=== PATIENT | female | born 1955 | race Caucasian/White ===

== ENCOUNTER → 2017-09-16 08:38 | Outpatient (CLI) | payer OTHER ==
[~2017-09-16 08:38] MED LIST: CARDURA4 MG PO; CARDURA8 MG PO; LIPITOR20 MG PO; PLAVIX75 MG PO; PROPAFENONE HC225 MG PO; TOPROL XL50 MG PO; ZESTRIL40 MG PO
[2017-10-15 08:07] VITALS: BMI 44.3
== END | disposition home or self-care (01) ==
LOC: D.RT 08:38
DX: Z02.71 Encounter for disability determination (principal)

== ENCOUNTER → 2017-09-16 08:45 | Outpatient (CLI) | payer BC ==
--- NOTE | ~2017-09-16 | EC ---
PATIENT:ARMANDO CACERES DATE OF SERVICE: 09/16/17 SEX: F MEDICAL RECORD: [id number] DATE OF : 59 LOCATION:D.US AGE OF PATIENT: 62 ADMISSION DATE: 09/16/17 REFERRING PHYSICIAN: INTERPRETING PHYSICIAN: NOY OLMEDO MD ECHOCARDIOGRAM REPORT ECHO CHARGES 4 ECHO COMPLETE Date: 09/16 CLINICAL DIAGNOSIS: ABNORMAL EKG/HTN/SVT/CP/SOB/ CHF/PALPITATIONS ECHOCARDIOGRAPHIC MEASUREMENTS (adult normal given) AC root (d.<3.7cm) 2.4 cm LV Septum d (<1.2 cm> 1.5 cm Valve Excursion 1.7 cm LV Septum (systole) 2.2 cm Left Atria (s.<4.0cm> 4.4 cm LVPW d(<1.2cm) 1.4 cm RV (d.<2.3cm) 2.7 cm LVPW (sytole) 2.5 cm LV diastole(<5.6CM) 6.0 cm MV E-F(>70mm/sec) cm LV systole 2.5 cm LVOT Diameter 1.8 cm MV exc.(>10mm) cm Est.ejection fraction (50-75%) % DOPPLER: LVIT cm/sec A 104 cm/sec E 142 cm/sec LA cm/sec RVSP 57.3 mmHg LVOT 172 cm/sec AOP1/2T m/s Asc. Ao 203 cm/sec RVOT 122 cm/sec RA cm/sec PA 126 cm/sec AV Gradient Peak 17.0 mmHg AV Mean 8.3 mmHg AV Area 2.7 cm MV Gradient Peak 17.0 mmHg MV Mean 5.8 mmHg MV Area cm COMMENTS: Tooth Inspector: Stanford MCGHEEOE Regulatory Law Specialist: 4 Dr. Olmedo TAPE# PACS Pericardial Effusion N DATE OF SERVICE: PROCEDURE: Transthoracic echocardiogram. FINDINGS: 1. The left ventricle has moderate concentric left ventricular hypertrophy with inflow characteristics consistent with a grade II diastolic dysfunction. The left ventricular end-diastolic dimension showed mild dilatation. The overall ejection fraction is 65% to 70%. 2. The left atrium is moderately dilated. ECHOCARDIOGRAM REPORT [id number] ARMANDO CACERES 3. The mitral valve shows [id number] mitral regurgitation. 4. The aortic valve is normal. 5. The tricuspid valve has trace to mild tricuspid regurgitation. The RVSP is 40 to 45 mmHg. CONCLUSIONS: The patient has evidence of hypertensive heart disease, moderate left ventricular hypertrophy, diastolic dysfunction and elevations in pulmonary systolic pressures. TRANSINT:[id number] Voice Confirmation ID: [id number] DOCUMENT ID: [id number] NOY OLMEDO MD at 1127 CC: [id number] DICTATION DATE: 09/17/17 0756 PIANO SOUNDING BOARD MATCHER: 09/17/17 0836 [facility] CLI 09/16/17 [address] [place] [address]
[2017-10-15 08:07] VITALS: BMI 44.3
== END | disposition home or self-care (01) ==
LOC: D.US 08:45
DX: R94.31 Abnormal electrocardiogram [ECG] [EKG] (principal); I10 Essential (primary) hypertension; I47.1 Supraventricular tachycardia; R07.9 Chest pain, unspecified; R06.00 Dyspnea, unspecified; R00.2 Palpitations; I50.9 Heart failure, unspecified

== ENCOUNTER 2017-10-15 07:16 | Outpatient (CLI) | payer MEDICAID ==
[~2017-10-15] VITALS: Ht 160 cm; Wt 113.6 kg
--- NOTE | ~2017-10-15 | HEMODYNAMI ---
PATIENT:ARMANDO CACERES MEDICAL RECORD: [id number] : 59 LOCATION:DYAO ADMISSION DATE: 10/15/17 Generatedon:10/15/20179:44 Patient name: ARMANDO CACERES Patient #: [id number] SSN: : 1955 Date of study: 10/15/2017 Page: Of Hemodynamic Procedure Report Patient Data Patient Demographics Procedure consent was obtained First Name: ARMANDO Gender: Female Last Name: MORRIS : 1955 Patient #: [id number] Age: 62 year(s) Race: Unknown Additional ID: [id number] Contact details Address: [address] [place] [address] State: [place] City: [place] Zip code: [address] Past Medical History Allergies: No known allergies Admission Admission Data Admission Date: 10/15/2017 Admission Time: 7:16 Admit Source: Other Height (in.): 63 BSA: 2.13 (m2) Height (cm.): 160.02 BMI: 44.29 (kg/m2) Weight (lbs.): 250 Weight (kg.): 113.4 Lab Results Lab Result Date: 10/15/2017 Lab Result Time: 0:00 Biochemistry Name Units Result Min Max BUN mg/dl 17 --(---*)-- 7 18 Creatinine mg/dl 1 --(--*-)-- 0.6 1.3 CBC Name Units Result Min Max Hemoglobin g/dl 11.4 *-(----)-- 13.5 17.5 Procedure Procedure Types Cath Procedure Diagnostic Procedure Right Heart RHC and LHC w/Coronaries Right Heart Pharmacology Study FFR/IVUS FFR Initial Procedure Description Procedure Date Procedure Date: 10/15/2017 Procedure Start Time: 8:53 Procedure End Time: 9:43 Procedure Staff Name Function Praneeth Rowe MD Performing Physician Denilson Beverly RT Monitor Cornelius Hsu RN Nurse Nick Godinez RT Scrub Procedure Data Cath Procedure Fluoroscopy Diagnostic fluoroscopy Total fluoroscopy Time: 4.6 time: 4.6 min min Diagnostic fluoroscopy Total fluoroscopy dose: 829 dose: 829 mGy mGy Contrast Material Contrast Material Type Amount (ml) Isovue 300 72 Entry Location Entry Primary Successful Side Size Upsize Upsize Entry Closure Succes sful Closure Location (Fr) 1 (Fr) 2 (Fr) Remarks Device Remarks Femoral Right 4 Fr 5 Fr 6 Fr Exoseal artery Short Femoral Right 4 Fr 7 Fr vein Short Diagnostic catheters Device Type Used For End Catheter Placement SWAN 7Fr Thermodilution Pressure cather (131F7P) Measurement MULTIPACK JL 4.0 5Fr Left Coronary catheter Angiography MULTIPACK 3DRC 5Fr Right Coronary catheter Angiography MULTIPACK Pigtail 5 Fr LV Angiography catheter Procedure Complications No complications Procedure Medications Medication Administration Route Dosage 0.9% NaCl I.V. 100 ml/hr Oxygen etCO2 Nasal cannula 2 l/min Heparin Flush Bag added to field 2 bags (1000units/500ml NS) Lidocaine 2% added to field 20 Versed I.V. 1 mg Fentanyl I.V. 25 mcg Versed I.V. 1 mg Heparin Bolus I.V. 2500 units Adenosine IV 1mg/ml I.V. 140 mcg/kg/min Adenosine IV 1mg/ml wasted 140 mcg/kg/min Hemodynamics Rest BSA: 2.13 (m2) HGB: 11.4 (g/dl) O2 Consumption: Estimated: 196.74 (ml/min) O2 Co nsumption indexed: Estimated:92.37 (ml/min/m) Heart Rate: 64 (bpm) Oxygen Saturations Time Location Saturations Hgb (g/dl) O2 Content Use (%) (ml/L) 8:59 PCW 72.7 9:01 PCW 97.3 9:02 AO 98.5 9:03 PA 68.5 9:07 RVM 65.8 9:10 RV 65.7 Pressure Samples Time Site Value (mmHg) Purpose Heart Use Rate(bpm) 8:59 PCW 33/38(28) Snapshot 67 9:00 PA 57/30(43) Snapshot 60 9:07 RV 91/6,27 Pullback 70 9:07 PA 49/43(29) Pullback 70 9:07 RV 65/11,24 Snapshot 69 9:10 RA 28/19(21) Snapshot 60 9:19 LV 190/16,37 EDP 63 9:19 LV 192/14,37 Snapshot 65 Gradients Valve Time Site 1 Site 2 Mean SEP/DFP Peak To Heart Use (mmHg) (sec/min) Peak Rate (mmHg) (bpm) Pulmonic 9:07 PA RV 5 54 42 70 49/43(29) 91/6,27 Tricuspid 9:08 RV RA 66 Aortic 9:19 LV AO 68 Thermodilution Cardiac Output Time Cardiac Output (l/min) Use 9:05 4.57 l/m 9:06 3.78 l/m Calculations Shunts (%) CO SV CO CI Left To 6.08 (ml/beat) (l/min) (l/(min*m)) Right Sol 66.53 4.23 2 Right To 6.08 143.74 Thermal 67.89 4.18 2 Left Flows (l/min) Content (ml/l) O2 Difference (ml/l) Qs 4.23 Qsi 1.99 Qe/Qp 1 O2 SA 152.71 SA-MV(AV) 46.51 O2 MV 106.2 PV-PA(VA) O2 PA 106.2 PV-MV(VV) Valve P-P Mean Valve Index Valve Source Name Gradient Area Flow (cm2) Pulmonary 42 5 0.79 0.37 78.15 Sol 42 5 0.78 0.37 77.13 Thermal Snapshots Thermal Samples Pre Cath Intra NCS Post Cath Vital Signs Time Heart Resp SPO2 etCO2 NIBP (mmHg) Rhythm Pain Sedation Rate (ipm) (%) (mmHg) Status Level (bpm) 8:44:37 62 26 98 36.8 203/91(154) NSR 0 (11) 10(A) , No pain 8:50:00 61 24 97 39 202/91(160) NSR 0 (11) 10(A) , No pain 8:55:22 61 20 96 39.1 201/84(144) NSR 0 (11) 10(A) , No pain 9:00:44 60 23 96 33.8 179/82(141) NSR 0 (11) 10(A) , No pain 9:05:57 65 21 97 20.2 180/84(136) NSR 0 (11) 10(A) , No pain 9:11:10 63 21 96 39.8 191/85(146) NSR 0 (11) 10(A) , No pain 9:16:30 60 22 97 35.3 190/81(131) NSR 0 (11) 10(A) , No pain 9:22:47 65 19 96 38.3 184/86(156) NSR 0 (11) 9(A) , No pain 9:29:16 63 25 97 37.6 183/79(142) NSR 0 (11) 9(A) , No pain 9:34:31 69 19 95 36.8 182/87(154) NSR 0 (11) 10(A) , No pain 9:41:07 63 26 94 32.3 190/87(152) NSR 0 (11) 10(A) , No pain Medications Time Medication Route Dose Verified Delivered Reason N otes Effectiveness by by 8:37:58 0.9% NaCl I.V. 100 ml/hr Cornelius Cornelius Per physician Aracelis Hsu RN RN 8:38:09 Oxygen etCO2 2 l/min Cornelius Cornelius Per physician Nasal Aracelis Hsu cannula RN RN 8:38:23 Heparin Flush added 2 bags Cornelius Cornelius used for Bag to Aracelis Hsu procedure (1000units/500ml field RN RN NS) 8:38:38 Lidocaine 2% added 20ml vial Cornelius Cornelius for local to Aracelis Hsu anesthetic field RN RN 8:52:37 Versed I.V. 1 mg Cornelius Cornelius for sedation Aracelis Hsu RN RN 8:52:47 Fentanyl I.V. 25 mcg Cornelius Cornelius for sedation Aracelis Hsu RN RN 9:25:11 Versed I.V. 1 mg Cornelius Cornelius for sedation Aracelis Hsu RN RN 9:25:31 Heparin Bolus I.V. 2,500 Cornelius Cornelius for units Preciousigan Aracelis anticoagulation RN RN 9:31:46 Adenosine IV I.V. 140 Cornelius Cornelius for 1mg/ml mcg/kg/min Aracelis Hsu vasodilation RN RN 9:33:03 Adenosine IV wasted 140 Cornelius Cornelius to sharp's 1mg/ml mcg/kg/min Aracelis Hsu RN enthone solder stripper Log Time Note 8:12:55 Admit Source: Other 8:17:54 Diagnostic Cath status Elective 8:20:37 Denilson Beverly RT(R) sent for patient. Start room use. 8:26:23 Time tracking: Regular hours (M-F 7:00 - 5:00) 8:26:27 Plan of Care:Hemodynamics will remain stable., Cardiac rhythm will remain stable., Comfort level will be maintained., Respiratory function will remain adequate., Patient/ family verbilizes understanding of procedure., Procedure tolerated without complication., Recovers from procedure without complications.. 8:26:39 H&P Date Dictated: 10/10/2017 Within 30 days and on chart., H&P Addendum completed by physician on day of procedure. (MUST COMPLETE FOR ALL OUTPATIENTS). 8:27:26 Patient received from Pre/Post Procedure Room to CCL 1 Alert and oriented. Tansferred to table in Supine position. 8:27:27 Warm blankets applied, and eduardo hugger turned on for patient comfort. 8:27:27 Correct patient and procedure confirmed by team. 8:27:29 Signed procedure consent form obtained from patient. 8:27:30 ECG and BP/O2 sat monitors applied to patient. 8:27:32 Pre-procedure instructions explained to patient. 8:27:32 Pre-op teaching completed and patient verbalized understanding. 8:27:33 Family in waiting room. 8:27:35 Patient NPO since Dinner. 8:27:42 Patient allergic to No known allergies 8:27:44 Is the patient allergic to Iodine/contrast media? No. 8:37:58 0.9% NaCl 100 ml/hr I.V. was administered by Cornelius Hsu RN; Per physician; 8:38:09 Oxygen 2 l/min etCO2 Nasal cannula was administered by Cornelius Hsu RN; Per physician; 8:38:23 Heparin Flush Bag (1000units/500ml NS) 2 bags added to field was administered by Cornelius Hsu RN; used for procedure; 8:38:38 Lidocaine 2% 20ml vial added to field was administered by Cornelius Hsu RN; for local anesthetic; 8:38:44 Vital chart was started 8:41:23 Is patient on blood thinner?Yes 8:41:25 Patient diabetic? No. 8:41:29 ----Pre-sedation anethsthesia assessment.---- 8:41:31 Previous problem with sedation/anesthesia? No ? 8:41:36 Snore? Yes 8:41:38 Sleep apnea? Yes 8:41:39 Deviated septum? No 8:41:40 Opens mouth fully? Yes 8:41:42 Sticks out tongue? Yes 8:41:47 Airway obstruction? Unknown ? 8:41:49 Dentures? No ? 8:41:51 Pre procedure: right dorsailis pedis pulse 1+ Palpable, but thready & weak; easily obliterated 8:41:55 Patient pain scale 0/10 ?. 8:42:10 IV patent on arrival in left wrist with 0.9% NaCl at 10ml/hr. 8:43:26 Lab Result : Creatinine 1 mg/dl 8:43:26 Lab Result : BUN 17 mg/dl 8:43:26 Lab Result : Hemoglobin 11.4 g/dl 8:43:32 Lab results completed and on chart. 8:43:35 Right groin area was prepped with chlora-prep and draped in sterile fashion 8:43:36 Alarms reviewed by R. N. 8:43:36 Sharps counted by scrub and verified by R.N. 8:43:38 Physician arrived 8:44:40 Use device set Femoral Dx 8:44:42 ACIST Syringe (51383) opened to sterile field. 8:44:43 Bag Decanter (2002) opened to sterile field. 8:44:43 Medline Cath Pack ([id number]) opened to sterile field. 8:44:44 DIAGNOSTIC WIRE .035 260cm J wire (137126) opened to sterile field. 8:44:47 ACIST Hand Control (58220) opened to sterile field. 8:44:48 ACIST Manifold (23623) opened to sterile field. 8:44:50 DIAGNOSTIC Multipack 5Fr catheter set (HL2561) opened to sterile field. 8:44:52 Tegaderm 4 x 4 (1626W) opened to sterile field. 8:44:54 PERCUTANEOUS ENTRY 19GA needle opened to sterile field. 8:44:55 MICROPUNCTURE 4FR Cook (N16764) opened to sterile field. 8:44:57 SHEATH Prelude 5Fr 0.035 ([id number]-6O-98-035) opened to sterile field. 8:45:10 SHEATH 7FR [place] (MOZ697) opened to sterile field. 8:46:09 DIAGNOSTIC WIRE .025 150cm J (199097) opened to sterile field. 8:51:36 Full Disclosure recording started 8:51:53 --------ALL STOP TIME OUT------ 8:51:54 Final Timeout: patient, procedure, and site verified with staff and physician. All members of the team are in agreement. 8:51:56 Right groin site verified by team. 8:51:59 Physical assessment completed. ASA score P 2 - A patient with mild systemic disease as per Praneeth Rowe MD. 8:52:03 Sedation plan: IV Moderate Sedation Medication:Versed, Fentanyl 8:52:18 Zero performed for pressure channel P1 8:52:21 Zero performed for pressure channel P1 8:52:37 Versed 1 mg I.V. was administered by Cornelius Hsu RN; for sedation; 8:52:47 Fentanyl 25 mcg I.V. was administered by Cornelius Hsu RN; for sedation; 8:52:50 procedure start 8:53:02 Local anesthetic to right femoral artery with Lidocaine 2% by Praneeth Rowe MD.INITIAL ACCESS ONLY 8:53:26 A 4 Fr sheath was inserted into the Right Femoral artery 8:53:26 Sheath upsized to a 5 Fr. 8:53:40 A 4 Fr sheath was inserted into the Right Femoral vein 8:53:41 Sheath upsized to a 7 Fr Short. 8:53:49 Baseline sample Acquired. 8:57:23 A SWAN 7Fr Thermodilution cather (131F7P) was advanced over the wire and used for Pressure Measurement. 8:59:36 PCW saturation: 72.7% 9:01:22 PCW saturation: 97.3% 9:02:22 AO saturation: 98.5% 9:03:21 PA saturation: 68.5% 9:05:12 Thermodilution performed using a Christiansen 131F7 7.0 Fr 19-22C 10.00 mL. Injectate temperature was 15.72 C, CO: 4.57 L/min, average CO: 4.18 L/min 9:06:31 Thermodilution performed using a Christiansen 131F7 7.0 Fr 19-22C 10.00 mL. Injectate temperature was 15.56 C, CO: 3.78 L/min, average CO: 4.18 L/min 9:07:34 Mid RV saturation: 65.8% 9:10:33 RV saturation: 65.7% 9::31 Patient Height : 63 inches 9:11:35 Patient Weight : 250 lbs 9:12:06 A MULTIPACK JL 4.0 5Fr catheter was advanced over the wire and used for Left Coronary Angiography. 9:12:11 LCA angiography performed. 9:14:10 Catheter removed. 9:14:39 A MULTIPACK 3DRC 5Fr catheter was advanced over the wire and used for Right Coronary Angiography. 9:14:52 RCA angiography performed. 9:16:51 Catheter removed. 9:17:15 A MULTIPACK Pigtail 5 Fr catheter was advanced over the wire and used for LV Angiography. 9:17:46 LV angiography performed. 9:17:57 INFLATOR Merit BasixCompak (NX8629) opened to sterile field. 9:18:06 LV gram done using PICKARD 9:18:07 LV hemodynamics recorded. 9:18:18 Injector settings: Ml/sec: 10, Volume: 20, 9:20:18 EF : 70 % 9:20:45 Procedure type changed to Cath procedure, Diagnostic procedure, Right Heart, RHC and LHC w/Coronaries, Right Heart Pharmacology Study, FFR/IVUS, FFR Initial 9:20:56 Catheter removed. 9:21:38 Sheath upsized to a 6 Fr Short. 9:24:17 GUIDE 6FR ART 3.5 SH catheter ([id number]) opened to sterile field. 9:24:39 6 Fr ART 3.5 SH guide catheter was inserted over the wire 9:25:11 Versed 1 mg I.V. was administered by Cornelius Hsu RN; for sedation; 9:25:31 Heparin Bolus 2,500 units I.V. was administered by Cornelius Hsu RN; for anticoagulation; 9:26:42 [place] Plus pressure wire (60750U) opened to sterile field. 9:27:03 COPILOT Valve Control (9316197) opened to sterile field. 9:29:33 FFR wire advanced. 9:29:41 RCA 9:31:38 Timer 1 started at 9:31 AM, stopped at 9:31 AM, duration 00:00:01 sec. 9::46 Adenosine IV 1mg/ml 140 mcg/kg/min I.V. was administered by Cornelius Hsu RN; for vasodilation; 9:33:03 Adenosine IV 1mg/ml 140 mcg/kg/min wasted was administered by Cornelius Hsu RN; to sharp's; 9:33:10 Timer 1 started at 9:32 AM, stopped at 9:33 AM, duration 00:00:16 sec. 9:33:42 Wire removed. 9:33:45 Guide catheter removed. 9:33:50 Contrast amount:Isovue 300 72ml. 9:33:59 Sheath removed intact; hemostasis achieved with Exoseal to the Right Femoral artery. 9:34:07 EXOSEAL 6Fr (EX600) opened to sterile field. 9:34:16 Procedure ended.(Physican Out) 9:35:07 Fluoroscopy time 04.60 minutes. 9:35:14 Flurop Dose total: 829 9:35:14 Fluoroscopy dose: 829 mGy 9:35:16 Sharps counted by scrub and verified by R.N. 9:35:17 Insertion/operative site no bleeding no hematoma. 9:35:19 Post-op/insertion site Right Femoral artery dressed using a 4 x 4 and Tegaderm. 9:35:22 Post right femoral artery:stable 9:35:24 Post Procedure Pulses reassessed and unchanged 9:35:26 Post procedure: right dorsailis pedis pulse 1+ Palpable, but thready & weak; easily obliterated. 9:35:30 Post procedure rhythm: sinus rhythm 9:37:34 Procedure and supply charges have been captured, reviewed, submitted and are correct. 9:38:01 SHEATH 6Fr Prelude ([id number]) opened to sterile field. 9:38:36 Procedure Complication : No complications 9:43:31 Vital chart was stopped 9:43:32 See physician's report for complete and final results. 9:43:36 Report given to Pre/Post Procedure Room. 9:43:39 Patient transfered to Pre/Post Procedure Room with Stretcher. 9:43:41 Procedure ended. 9:43:41 Full Disclosure recording stopped 9:43:46 End room use (Document Last) Device Usage Item Name Manufacture Quantity Catalog Number [facility] Minimal Lot# / Charge Number Stock Stock Serial# Code ACIST Syringe Acist 1 09361 920133 373047 904012 20 (72705) [employer] Bag Decanter Microtek 1 2001S 647427 10510 310670 5 (2001S) Medical Inc. Medline Cath Cardinal 1 [id number] 759441 87648 233623 5 [facility] Health ([id number]) DIAGNOSTIC WIRE [place] 1 923530 796025 785666 815267 30 .035 260cm J wire (631145) ACIST Hand Acist 1 65523 782055 450625 989580 5 Control (85491) [employer] Inc ACIST Manifold Acist 1 97432 231112 921147 411988 5 (71089) [employer] Systems Inc DIAGNOSTIC Cardinal 1 HX2859 936396 93922 531319 30 Multipack 5Fr Health catheter set (ME5283) Tegaderm 4 x 4 3M 1 1626W 091454 632417 154097 5 (1626W) PERCUTANEOUS Cybera 1 D24592 536851 703057 5 ENTRY 19GA needle MICROPUNCTURE Cybera 1 Q10666 136556 894940 909564 5 4FR Cardinal Midstream (R18984) SHEATH Prelude Merit 1 KMJ-3K-86-035 349009 568712 642623 5 5Fr 0.035 Medical (EKR-1R-69-035) SHEATH 7FR Terumo 1 TTF434 515065 150514 783958 5 [place] (PQU326) DIAGNOSTIC WIRE St [place] 1 727244 406544 286764 577729 2 .025 150cm J (509624) SWAN 7Fr Christiansen 1 131F7P 809805 79115 499024 3 Thermodilution Lifesciences cather (131F7P) MULTIPACK JL Cardinal 1 602011 5 4.0 5Fr Health catheter MULTIPACK 3DRC Cardinal 1 109899 5 5Fr catheter Health MULTIPACK Cardinal 1 602241 5 Pigtail 5 Fr Health catheter INFLATOR Merit Merit 1 PR0352 544528 565251 105876 15 [employer] Medical (BK9236) GUIDE 6FR ART [place] 1 [id number] 009381 166927 443474 0 3.5 SH catheter Scientific (929853095) [place] 1 83105V 981867 205429424 761945 5 Plus pressure wire (38025L) COPILOT Valve Gregorio 1 7734172 972603 230787 340735 5 Control Vascular (6399451) EXOSEAL 6Fr Cardinal 1 EX600 927154 932848 328410 10 (EX600) Health SHEATH 6Fr Merit 1 [id number] 171627 560406 941809 5 Prelude Medical ([id number]) Signature Audit [place] Stage Time Signature Unsigned Intra-Procedure 10/15/2017 Denilson MEEKS(Lorenza) 9:44:26 AM Signatures Monitor : Denilson Beverly RT Signature : Date : Time : [address] [address]
--- NOTE | ~2017-10-15 | OP ---
PATIENT NAME: ARMANDO CACERES MEDICAL RECORD: [id number] :59 LOCATION:D.CAT ADMISSION DATE: SURGEON: NOY OLMEDO MD DATE OF OPERATION: 10/15/2017 PROCEDURE: Left and right heart catheterization, a fractional flow reserve coronary angiography and left ventriculogram. PROCEDURE IN DETAIL: The patient was brought to cardiac catheterization lab in stable condition. Both groins were sterilely prepped and draped. The patient had a 5-Slovenian sheath placed into the right common femoral artery in a retrograde fashion. The patient then had a 7-Slovenian sheath placed into the right common femoral vein in an antegrade fashion, both utilizing a modified Seldinger technique. We were then able to take a S-shaped balloon tipped [place] catheter into the pulmonary artery and placed in a wedge position. We were able to get wedge pressures and wedge sats and then PA pressures and PA sats and then cardiac outputs. We were then able to get an RV pressures, RV sats and RA pressures and RA sats for complete right heart catheterization. We then were able to take serial catheters and intubate the left coronary artery, the right coronary artery respectively and the left ventricular cavity. We were able to get direct pressure measurements into the left ventricle as well as ejection fraction. We were able to do direct coronary angiography. Because we had seen an intermediate lesion in the right, we advanced an fractional flow wire into the distal right coronary artery circulation and systemic adenosine was given per protocol for fractional flow wire measurements. FINDINGS: 1. Left main is normal. 2. The LAD has mild calcified plaquing. 3. The circumflex is nondominant, has mild calcification, mild plaquing. The obtuse marginal branch has a superior and inferior branch. The inferior branch has a mid 50% stenosis. 4. The RCA is a dominant vessel and distribution, it has segmental plaquing in the 40% to 50% range; however, in one view it looked as if it could be in the 70% range and therefore we took a fractional flow wire into the distal RCA circulation where we were able to measure the pressure across the lesion after adenosine was given. The lesions in the RCA were not shown to be significant and the procedure was terminated. HEMODYNAMICS: The left ventricular ejection fraction is hyperdynamic 70%. There is 1 to 2+ mitral regurgitation. The end-diastolic pressure is 25 to 40 mmHg, depending on respiratory phase. The PA pressures were shown to be elevated again, very dependent upon respiratory phase, but the mean pressure was elevated. The peak that we had seen was 70 mmHg with the mean pressures that were in the 30s. We did see a significant MR wave, seen into the tracings. The saturations showed no step-up. We also showed that there was an increase in pulmonary vascular resistance for specific numbers. Please look at the full report. The cardiac output was shown to be 9 liters per minute. IMPRESSION: The patient has evidence of pulmonary hypertension with significant contributions from diastolic heart failure with elevations in the left ventricular end-diastolic pressures. The patient has significant respiratory OPERATIVE REPORT [id number] ARMANDO CACERES. The patient's cardiac output was preserved. There was intermediate stenoses in the RCA and mild stenosis that are non-hemodynamically significant by FFR in the RCA and the circumflex. RECOMMENDATIONS: Usual post-catheterization orders. Continue aggressive secondary risk factor modification, look at vasodilators and aggressive treatment for the diastolic heart failure. TRANSINT:[id number] Voice Confirmation ID: [id number] DOCUMENT ID: [id number] NOY OLMEDO MD at 1458 CC: [id number] DICTATION DATE: 10/15/17 0942 WAGON DRIVER SALESPERSON: 10/15/17 1011 DEP CLI 10/15/17 [facility] [address] [place] [address]
[2017-10-15] MEDS ORDERED: ZESTRIL40 MG PO (07:54)
[2017-10-15] MEDS ORDERED: TOPROL XL50 MG PO (07:55)
[2017-10-15] MEDS ORDERED: CARDURA8 MG PO (07:56)
[2017-10-15] MEDS ORDERED: CARDURA4 MG PO (07:56)
[2017-10-15] MEDS ORDERED: LIPITOR20 MG PO (07:57)
[2017-10-15] MEDS ORDERED: PLAVIX75 MG PO (07:57)
[2017-10-15] MEDS ORDERED: PROPAFENONE HC225 MG PO (07:57)
[2017-10-15 08:07] VITALS: BP 173/62; Ht 160 cm; Wt 113.6 kg
[2017-10-15 08:19] LABS: BASOPHILS 0.3 % (0-2); EOSINOPHILS 3.1 % (0-7); HEMATOCRIT 35.6 % (36.0-48.0); HEMOGLOBIN 11.4 g/dL (12-16); IMMATURE GRANULOCYTES 0.1 % (0-5); LYMPHOCYTES 20.2 % (15-50); MCH 26.6 pg (26.0-34.0); MEAN PLATELET VOLUME 10.3 fL (7.4-10.4); MONOCYTES 5.7 % (2-11); NEUTROPHILS 70.6 % (40-80); PLATELET COUNT 226 10x3/uL (130-400); RBC 4.29 10x6/uL (4.00-5.40); RDW 16.5 % (11.5-14.5); WBC 6.7 10x3/uL (4.8-10.8)
[2017-10-15 08:31] LABS: ANION GAP 13.2 mmol/L (8-16); CALCIUM 9.3 mg/dL (8.5-10.1); CARBON DIOXIDE 24.7 mmol/L (21.0-32.0); POTASSIUM - SERUM 3.9 mmol/L (3.5-5.1)
== END 2017-10-15 12:30 ==
LOC: D.CATH 07:16
PROVIDERS: Internal Medicine Cardiovascular Disease
DX: I50.30 Unspecified diastolic (congestive) heart failure (principal)

== ENCOUNTER → 2017-12-24 18:00 | Outpatient (CLI) | payer MEDICAID ==
[2017-10-15 08:07] VITALS: BMI 44.3
[2017-12-24 18:43] LABS: ANION GAP 14.9 mmol/L (8-16); BILIRUBIN - DIRECT 0.08 mg/dL (0.00-0.30); BILIRUBIN - INDIRECT 0.29 mg/dL (0.00-1.00); BILIRUBIN - TOTAL 0.37 mg/dL (0.2-1.3); CALCIUM 9.7 mg/dL (8.5-10.1); CARBON DIOXIDE 29.3 mmol/L (21.0-32.0); CREATININE - SERUM 1.1 mg/dL (0.6-1.3); LDL-HDL RATIO 1.2 ratio (1.5-3.5); POTASSIUM - SERUM 4.2 mmol/L (3.5-5.1); PROTEIN - SERUM 7.5 g/dL (6.4-8.2)
== END | disposition home or self-care (01) ==
LOC: D.LABREF 18:00
PROVIDERS: Internal Medicine Cardiovascular Disease
DX: I11.0 Hypertensive heart disease with heart failure (principal); I50.9 Heart failure, unspecified